=== PATIENT | female | born 1980 | race African-American/Black ===

== ENCOUNTER → 2017-04-09 | Outpatient (CLI) | payer BC | LOC: CAT 08:22 | DX: S02.32XA Fracture of orbital floor, left side, initial encounter for closed fracture (principal); H50.69 Other mechanical strabismus; X58.XXXA Exposure to other specified factors, initial encounter; Y93.89 Activity, other specified; Y92.89 Other specified places as the place of occurrence of the external cause; Y99.8 Other external cause status ==